=== PATIENT | female | born 1945 | race American Indian/Alaskan Native ===

== ENCOUNTER 2020-04-05 16:17 | Emergency (ER) | payer MEDICARE, OTHER, MEDICAID, SELFPAY ==
--- NOTE | 2020-04-05 16:21 | DI.RAD.S_ITS ---
PROCEDURE: XR HUMERUS RT 2V INDICATIONS: right upper arm pain, s/p fall TECHNIQUE: 2 views of the humerus were acquired. COMPARISON: None. FINDINGS: Bones: There is a highly comminuted fracture of the right humeral head and neck, with impaction. No bony erosive lesion is seen. The visualized ribs are Age-appropriate bony degenerative changes are seen. No suspicious lytic or blastic lesions are seen. Soft tissues: No suspicious soft tissue calcifications. IMPRESSION: Impacted, highly comminuted fracture of the right humeral head and neck. Dictated by: Brendan Shanks M.D. on 04/05/2020 at 15:46 Approved by: Brendan Shanks M.D. on 04/05/2020 at 15:47
[2020-04-05 16:22] VITALS: BP 167/67; PULSE 86; RESP 24; TEMP 36.6; O2SAT 93; BMI 45.3
--- NOTE | 2020-04-05 17:12 | ED.UPPEXIN ---
HPI - Extremity Injury (Upper) <Rahat Steven SENIOR SSIS DEVELOPER - Last Filed: 04/05/20 23:23> General Chief Complaint: Extremity Injury, Upper Stated Complaint: GLF R Side Time Seen by Provider: 04/05/20 16:21 Source: patient and EMS Mode of arrival: EMS Limitations: no limitations History of Present Illness HPI narrative: This is a 75-year-old female, former smoker, who has history of depression, hypothyroidism, COPD presents to ED with and [facility] with chief complain of right upper medial arm pain after she sustained a fall. Reports right dominant hand. Patient lives at [facility] and when she was getting off the toilet, she reports lost balance and fell on right arm. There is no obvious skin abrasion, laceration was noticed. Patient reports intact sensation and is able to wiggle her fingers. Patient denies pain in scapula, elbow, wrist, or hand/fingers. Patient denies losing consciousness from this fall. Patient denies chest pain, dizziness, breathing difficulty prior to the fall. She denies previous injury to right humerus. Patient is not currently taking blood thinner. Reports pain is 5/10 and declines strong pain medications and states she takes Tylenol daily for back pain. Patient states she sees nurse practitioner at [facility]. Related Data Home Medications Medication Instructions Recorded Confirmed albuterol sulfate INHALATION 04/05/20 guaifenesin [Mucinex] 1,200 mg PO BID 04/05/20 04/05/20 ipratropium bromide [Atrovent HFA] INHALATION 04/05/20 levothyroxine 50 mcg PO DAILY 04/05/20 04/05/20 montelukast 10 mg PO DAILY 04/05/20 04/05/20 olanzapine 2.5 mg PO QPM 04/05/20 04/05/20 olanzapine 20 mg PO QAM 04/05/20 04/05/20 sertraline 50 mg PO DAILY 04/05/20 04/05/20 Previous Rx's Medication Instructions Recorded hydrocodone-acetaminophen [[place]] 1 tab PO Q12H PRN #7 tab 04/05/20 Allergies Allergy/AdvReac Type Severity Reaction Status Date / Time Penicillins Allergy Verified 04/05/20 17:18 Sulfa (Sulfonamide Allergy Verified 04/05/20 17:18 Antibiotics) Review of Systems <JW Barrios - Last Filed: 04/05/20 23:23> Review of Systems Narrative: General: Denies fever, chills, fatigue, malaise, sweats. HEENT: Denies sinus pain, ear pain, sore throat, difficulty swallowing, dizziness. Respiratory: Denies dyspnea, cough, wheezing, hemoptysis, sputum. Cardiovascular: Denies chest pain, palpitations, orthopnea, edema. Gastrointestinal: Denies nausea, vomiting, abdominal pain, diarrhea, constipation, melena. : Denies dysuria, frequency, incontinence, hematuria, urinary retention. Musculoskeletal: With see HPI Skin: Denies rash, skin lesions, or other. Neurologic: Denies weakness, headache, numbness, change in speech, confusion, seizures, incoordination. Psychiatric: No concerning psychosocial issues. 12-point review of systems is negative except for those stated above. Patient History <JW Barrios - Last Filed: 04/05/20 23:23> Medical History Back pain (Acute) COPD (chronic obstructive pulmonary disease) (Acute) Depression (Acute) Difficulty balancing (Acute) Hypothyroidism (Acute) Memory difficulty (Acute) Social History Smoking Status: Former smoker Smoking Status: Never smoker alcohol intake frequency: holidays/special occasions only Substance Use Type: does not use Exam <JW Barrios - Last Filed: 04/05/20 23:23> Narrative Exam Narrative: GEN: Alert, oriented x 3, well appearing and nourished, and in no acute distress. Head: Normal cephalic, atraumatic. No scalp or temporal tenderness, palpable mass or rash. EYES: Pupils are equal, round, and reactive to light and accommodation. Extraocular muscles are intact bilaterally. There is no subconjunctival hemorrhage, exudate and sclera non-icteric. ENT: Hearing grossly intact. Nose without bleeding, purulent discharge or deviation. Facial sinuses nontender to palpate. Mucous membrane moist, no mucosal lesion. Throat without erythema, tonsillar hypertrophy or exudate. Uvula in midline, airway patent. Neck: Trachea in midline. No JVD, non-tender without lymphadenopathy. No masses or thyroid megaly. Supple, non-tender and no meningeal signs. CARDIAC: Normal regular rate and rhythm without murmurs, gallops, or rubs. No chest wall tenderness. No peripheral edema, cyanosis or pallor. Capillary refill is less than 2 seconds. RESPIRATORY: Lungs are clear to auscultate bilaterally. No cough, wheezes, rales, or rhonchi. No stridor, respiratory distress, increase work of breathing, or accessary muscle used. ABD: Abdomen soft, nontender and non-distended. No guarding or rebound tenderness to palpate. Bowel sounds are normal in all 4 quadrants. There is no palpable masses or organomegaly. SKIN: Warm, dry, normal color for patient. No erythema, lesions or rash over visible areas. BACK: Nontender without deformity or crepitance. No flank tenderness. NEUROLOGICAL: Alert and oriented to place, time and person. Sensation and motor function intact bilaterally. No facial droops, dysphasia. PSYCHIATRIC: Good judgement and reason, without hallucinations, abnormal affect or abnormal behaviors during the examination. Patient is not suicidal. Initial Vital Signs Initial Vital Signs: Vital Signs Temperature 97.9 F 04/05/20 16:22 Pulse Rate 86 04/05/20 16:22 Respiratory Rate 24 04/05/20 16:22 Blood Pressure 167/67 H 04/05/20 16:22 Pulse Oximetry 93 04/05/20 16:22 Extrem Right upper extremity: normal capillary refill, edema, shoulder/upper arm Details: tenderness Location: of the proximal humerus, swelling Location: of the proximal humerus and abnormal ROM Details: pain with active ROM (Due to pain) Details: in ADduction, in ABduction, in extension, in flexion and in internal rotation and pain with passive ROM (Due to pain) Details: with ADduction, with ABduction, with extension, with flexion and with internal rotation; no unusual warmth, elbow/forearm Details: no tenderness and no swelling, wrist Details: normal to inspection; no tenderness and hand Details: normal to inspection, normal capillary refill, normal ROM of fingers and no swelling; no tenderness and no unusual warmth; ROM limited and joint enlargement noted <Renato Hernandez MD - Last Filed: 04/06/20 07:51> Initial Vital Signs Initial Vital Signs: Vital Signs Temperature 97.9 F 04/05/20 16:22 Pulse Rate 86 04/05/20 16:22 Respiratory Rate 24 04/05/20 16:22 Blood Pressure 167/67 H 04/05/20 16:22 Pulse Oximetry 93 04/05/20 16:22 Procedures <JW Barrios - Last Filed: 04/05/20 23:23> Orthopedic Splinting/Casting Right humerus: Side: right Upper Extremity Injury Location: upper arm Upper Extremity Immobilizer: sling/shoulder immobilizer Post splinting neuro exam: intact Post splinting vascular exam: intact Placed by: Nursing Scores <JW Barrios - Last Filed: 04/05/20 23:23> [facility] [place] coma scale eye opening: Spontaneous [place] coma scale verbal response: Orientated [place] coma scale motor response: Obey commands [place] coma scale total score: 15 Course <JW Barrios - Last Filed: 04/05/20 23:23> Orders Ordered: Discontinued Medications Hydrocodone Bitart/Acetaminophen (Vicodin 5/325 Prepack) 1 bottle MISC SEEINSTR ONE Stop: 04/05/20 17:35 Last Admin: 04/05/20 17:57 Dose: 1 bottle Documented by: BRENDAN Vital Signs Vital signs: Vital Signs - 8 hr 04/05/20 16:22 04/05/20 18:08 Temperature 97.9 F Pulse Rate 86 88 Respiratory Rate 24 Blood Pressure 167/67 H 121/64 Pulse Oximetry 93 94 <Renato Hernandez MD - Last Filed: 04/06/20 07:51> Orders Ordered: Discontinued Medications Hydrocodone Bitart/Acetaminophen (Vicodin 5/325 Prepack) 1 bottle MISC SEEINSTR ONE Stop: 04/05/20 17:35 Last Admin: 04/05/20 17:57 Dose: 1 bottle Documented by: BRENDAN Vital Signs Vital signs: Vital Signs - 8 hr 04/05/20 16:22 04/05/20 18:08 Temperature 97.9 F Pulse Rate 86 88 Respiratory Rate 24 Blood Pressure 167/67 H 121/64 Pulse Oximetry 93 94 MDM - Extremity Injury (Upper) <JW Barrios - Last Filed: 04/05/20 23:23> Differential Diagnosis Differential diagnosis: Likely other (Humerus fracture, upper arm contusion, fall) Medical Records Attestation: I reviewed the patient's medical records. Imaging Data XR-Humerus RT: Radiologist's Impression: [address] [address] XRay Report Signed Patient: Marli StewartMR#: [id number] : 3Acct:[id number] Age/Sex: 75 / FDate of Service: 04/05/20 Loc: ED Accession Number: [id number] Procedure: XR humerus RT 2V Ordering Provider: Rahat Steven PROCEDURE: XR HUMERUS RT 2V INDICATIONS: right upper arm pain, s/p fall TECHNIQUE: 2 views of the humerus were acquired. COMPARISON: None. FINDINGS: Bones: There is a highly comminuted fracture of the right humeral head and neck, with impaction. No bony erosive lesion is seen. The visualized ribs are Age-appropriate bony degenerative changes are seen. No suspicious lytic or blastic lesions are seen. Soft tissues: No suspicious soft tissue calcifications. IMPRESSION: Impacted, highly comminuted fracture of the right humeral head and neck. Dictated by: Brendan Shanks M.D. on 04/05/2020 at 15:46 Approved by: Brendan Shanks M.D. on 04/05/2020 at 15:47 MDM Narrative Medical decision making narrative: This is a 75-year-old female who presents to ED with right upper arm pain near the axilla after she fell off the toilet. Patient denies chest pain, dizziness, breathing difficulty prior to the fall and states she had lost balance. Patient denies shoulder pain, mid cervical neck tenderness, headache, elbow pain, wrist or hand pain. Patient had limited range of motion of right arm due to discomfort. Patient arrived to ED with field sling that was applied by EMS. Neuro vascular exam was intact in right hand with brisk cap refill. No lab test was done since patient did not have any prior abnormal symptoms. Right humerus x-ray test indicates a highly comminuted fracture of the right humeral head and neck with impaction. Dr. Rose was consulted over the phone and he reviewed x-ray images. It was recommended to keep patient's affected arm in a sling and to follow-up on Tuesday at [facility]. Findings were discussed with the patient and informed that patient may require surgical procedure for her injury. Patient declined surgery at this time. Patient advised to discuss with orthopedist for risk and benefit of surgical procedure for the treatment. Patient declined pain medication while in ED. Patient discharged to home with prepack [place] but advised to take [id number] Tylenol and or Motrin as needed as 1st line treatment with RICE therapy and a shoulder immobilizer. Return precautions were discussed with patient and she verbalized understanding and in agreement with treatment plan. Discharge Plan Departure Patient Disposition: Home Clinical Impression: Closed comminuted fracture of right humerus Qualifiers: Encounter type: initial encounter Humerus Location: shaft Fracture alignment: displaced Qualified Code(s): S42.351A - Displaced comminuted fracture of shaft of humerus, right arm, initial encounter for closed fracture Fall Qualifiers: Encounter type: initial encounter Qualified Code(s): W19.XXXA - Unspecified fall, initial encounter Discharge Date/Time: 04/05/20 18:10 Instructions: How to Prevent Falls, Humeral Shaft Fracture Activity Restrictions/Additional Instructions: You have been diagnosed with [dominant hand closed highly comminuted fracture of right humeral head and neck from fall. You may require a surgery to treat this. Please use sling all time.]. What to do: *Take your medications as directed. Please take Tylenol 650-1000 mg up to 3 to 4 times a day for pain. Ibuprofen/Motrin 400 mg up to 3 times a day for pain as needed with food to decrease upset stomach. I will send you home with strong pain medication which is called [place] ( Tylenol and Hydrocodone mixture) for severe pain. This can cause drowsiness so please take precaution not to fall, drive, drink alcohol, or operate heavy equipments. It can also cause constipation so please take precautions and take adequate hydration and high-fiber diet. *Follow up with your primary care provider in 2-3 days, call for an appointment. Please call [facility] office on Tuesday morning. I spoke with Dr. Rose on the phone about your arm fracture and he is aware. Let them know you were seen in the ED and that we asked you to be seen in follow up. *Return to ED if you have any new, worsening, or concerning symptoms, such as [chest pain, breathing difficulty, fever, severe pain, increasing numbness/weakness/tingling on affected arm or any acute concerns]. Prescriptions: New hydrocodone-acetaminophen [[place]] 5-325 mg tablet 1 tab PO Q12H PRN (Reason: pain) Qty: 7 RF: 0 No Action albuterol sulfate 90 mcg/actuation HFA aerosol inhaler INHALATION RF: 0 olanzapine 2.5 mg tablet 2.5 mg PO QPM RF: 0 levothyroxine 50 mcg tablet 50 mcg PO DAILY RF: 0 montelukast 10 mg tablet 10 mg PO DAILY RF: 0 sertraline 50 mg tablet 50 mg PO DAILY RF: 0 Atrovent HFA 17 mcg/actuation HFA aerosol inhaler INHALATION RF: 0 olanzapine 20 mg tablet 20 mg PO QAM RF: 0 guaifenesin [Mucinex] 600 mg Tablet Extended Release 12hr 1,200 mg PO BID RF: 0 Referrals: [facility] [Provider Group] Beth Trejo [Non-Staff] -
[2020-04-05] MEDS: HYDROCODONE/ACET 5/325 PREPACK 1 BOTTLE MISC (17:57)
[2020-04-05 18:08] VITALS: BP 121/64; PULSE 88; O2SAT 94
== END 2020-04-05 18:10 | disposition home or self-care (01) ==
PROVIDERS: Emergency Provider Nurse Practitioner Family
DX: S42.351A Displaced comminuted fracture of shaft of humerus, right arm, initial encounter for closed fracture (principal); W19.XXXA Unspecified fall, initial encounter
CPT/HCPCS: 73060; 99283

== ENCOUNTER 2020-04-10 13:34 | Emergency (ER) | payer MEDICARE, OTHER, MEDICAID, SELFPAY ==
[2020-04-10 13:50] VITALS: BP 114/56; PULSE 115; RESP 18; TEMP 36.1; O2SAT 94; BMI 43.8
--- NOTE | 2020-04-10 14:06 | ED_ITS ---
HPI - Extremity Injury (Upper) <BART Rodgers - Last Filed: 04/10/20 18:15> General Chief Complaint: Extremity Injury, Upper Stated Complaint: Fall 04/05, bruising around Rt Shoulder Break Time Seen by Provider: 04/10/20 13:55 Source: patient and family Mode of arrival: Ambulatory Limitations: no limitations History of Present Illness HPI narrative: The patient is a delightful 75-year-old female former smoker with history of COPD who presents from her elder Community for chief complaint of needing to get admitted. She presented to this emergency department on 04/05 and was diagnosed with a comminuted right humeral fracture. She states that her elder facility is staffed only with CNAs, and they are unable to help her bathe or get dressed. Thus her elder facility referred her back to the emergency department for admission. The patient denies any pain. She ambulated into the emergency department. Staff told family that they are not able to care for her because they are not nurses. The patient has planned follow-up with Orthopedics on Tuesday with Dr. Keyes. She has an MRI scheduled for 330 today. Related Data Home Medications Medication Instructions Recorded Confirmed albuterol sulfate INHALATION 04/05/20 guaifenesin [Mucinex] 1,200 mg PO BID 04/05/20 04/05/20 ipratropium bromide [Atrovent HFA] INHALATION 04/05/20 levothyroxine 50 mcg PO DAILY 04/05/20 04/05/20 montelukast 10 mg PO DAILY 04/05/20 04/05/20 olanzapine 2.5 mg PO QPM 04/05/20 04/05/20 olanzapine 20 mg PO QAM 04/05/20 04/05/20 sertraline 50 mg PO DAILY 04/05/20 04/05/20 Previous Rx's Medication Instructions Recorded hydrocodone-acetaminophen [Sedgwick] 1 tab PO Q12H PRN #7 tab 04/05/20 Allergies Allergy/AdvReac Type Severity Reaction Status Date / Time Penicillins Allergy Verified 04/10/20 14:02 Sulfa (Sulfonamide Allergy Verified 04/10/20 14:02 Antibiotics) Review of Systems <BART Rodgers - Last Filed: 04/10/20 18:15> Review of Systems Narrative: GENERAL: Denies chills, fatigue, malaise, fever, sweats. HEENT: Denies sinus pain, ear pain, sore throat, difficulty swallowing, dizziness. RESPIRATORY: Denies dyspnea, cough, wheezing, hemoptysis, sputum. CARDIOVASCULAR: Denies chest pain, palpitations, orthopnea, edema, GASTROINTESTINAL: Denies nausea, vomiting, abdominal pain, diarrhea, c onstipation, melena. : Denies dysuria, frequency, incontinence, hematuria, urinary retention. MUSCULOSKELETAL: See HPI SKIN: See HPI NEUROLOGIC: Denies weakness, headache, numbness, change in speech, confusion, seizures, incoordination. PSYCHIATRIC: No concerning psychosocial issues. 12 point review of systems is negative except for those stated above Patient History <BART Rodgers - Last Filed: 04/10/20 18:15> Medical History Back pain (Acute) COPD (chronic obstructive pulmonary disease) (Acute) Depression (Acute) Difficulty balancing (Acute) Hypothyroidism (Acute) Memory difficulty (Acute) Social History Smoking Status: Former smoker Smoking Status: Former smoker alcohol intake frequency: holidays/special occasions only Substance Use Type: does not use Exam <BART Rodgers - Last Filed: 04/10/20 18:15> Narrative Exam Narrative: GENERAL: Elderly female no acute distress HEAD: Atraumatic. Normocephalic. No temporal or scalp tenderness. EYES: Pupils equal round and reactive. Extraocular motions intact. No scleral icterus. No injection or drainage. ENT: Nose without bleeding, purulent drainage or septal hematoma. Throat without erythema, tonsillar hypertrophy or exudate. Uvula midline. Airway patent. NECK: Trachea midline. No JVD or lymphadenopathy. Supple, nontender, no meningeal signs. CARDIOVASCULAR: Regular rate and rhythm RESPIRATORY: Coarse bilaterally to auscultation. Breath sounds equal bilaterally. No wheezes, rales, or rhonchi. No cough. No increased respiratory effort. No accessory muscle use. GASTROINTESTINAL: Abdomen soft, non-tender, nondistended. No hepato- splenomegaly, or palpable masses. No guarding. EXTREMITIES: Generalized pain to palpation of right shoulder. Sling in place. Positive right radial pulse. Able to flex and extend, lead welder with right hand. Capillary refill less than 2 seconds. Slight swelling noted right hand. Positive right radial pulse. BACK: Nontender without deformity or crepitance. No flank tenderness. NEURO: AOx3. SKIN: Ecchymosis noted at right shoulder. No lacerations or abrasions noted. Initial Vital Signs Initial Vital Signs: Vital Signs Temperature 97.0 F L 04/10/20 13:50 Pulse Rate 115 H 04/10/20 13:50 Respiratory Rate 18 04/10/20 13:50 Blood Pressure 114/56 L 04/10/20 13:50 Pulse Oximetry 94 04/10/20 13:50 <Nelson Spencer DO - Last Filed: 04/10/20 18:24> Initial Vital Signs Initial Vital Signs: Vital Signs Temperature 97.0 F L 04/10/20 13:50 Pulse Rate 115 H 04/10/20 13:50 Respiratory Rate 18 04/10/20 13:50 Blood Pressure 114/56 L 04/10/20 13:50 Pulse Oximetry 94 04/10/20 13:50 Scores <BART Rodgers - Last Filed: 04/10/20 18:15> GCS Laurent coma scale eye opening: Spontaneous Laurent coma scale verbal response: Orientated Alexander coma scale motor response: Obey commands Alexander coma scale total score: 15 Course <BART Rodgers - Last Filed: 04/10/20 18:15> Orders Ordered: ED Orders 04/10/20 14:04 Consult to [facility] [place] - Napper Grinder Stat 04/10/20 14:39 Consult to Physical Therapy Evaluate & Treat 04/10/20 14:48 CT UE RT wo con Stat Vital Signs Vital signs: Vital Signs - 8 hr 04/10/20 13:50 04/10/20 15:30 04/10/20 17:33 Temperature 97.0 F L Pulse Rate 115 H 84 94 H Respiratory Rate 18 16 16 Blood Pressure 114/56 L 120/75 Blood Pressure [Left Arm] 110/54 L Pulse Oximetry 94 97 98 <DO Jonathan Jean Last Filed: 04/10/20 18:24> Orders Ordered: ED Orders 04/10/20 14:04 Consult to [facility] [place] - Napper Grinder Stat 04/10/20 14:39 Consult to Physical Therapy Evaluate & Treat 04/10/20 14:48 CT UE RT wo con Stat Vital Signs Vital signs: Vital Signs - 8 hr 04/10/20 13:50 04/10/20 15:30 04/10/20 17:33 Temperature 97.0 F L Pulse Rate 115 H 84 94 H Respiratory Rate 18 16 16 Blood Pressure 114/56 L 120/75 Blood Pressure [Left Arm] 110/54 L Pulse Oximetry 94 97 98 MDM - Extremity Injury (Upper) <BART Rodgers - Last Filed: 04/10/20 18:15> Imaging Data Extremity x-ray #1: Radiologist's Impression: [address] [place] [id number] Scan Report Signed Patient: Marli Stewart#: [id number] : 3Acct:[id number] Age/Sex: 75 / FDate of Service: 04/10/20 Loc: ED Accession Number: [id number] Procedure: CT UE RT wo con Ordering Provider: Amanda Kaufman PROCEDURE: CT UE RT WO CON INDICATIONS: fracture upper right humerus TECHNIQUE: Noncontrast 1-1.5 mm thick sections acquired from the acromioclavicular joint to the inferior scapula, with coronal and sagittal reformatting. COMPARISON: None. FINDINGS: Image quality: Excellent. Bones: Acute comminuted impacted humeral head and proximal humeral shaft fracture is seen with superior migration of proximal humeral shaft in relation to humeral head and up to 2.2 cm overlapping at fracture site. Anterior displacement of humeral shaft in relation to humeral head is noted. Fracture lines are seen extending to both greater and lesser tuberosity of humeral head with anterior and medial displacement of lesser tuberosity fragment and superior lateral displacement of greater tuberosity fragment anterior displacement of the proximal humeral shaft fracture fragment is also seen. Fracture line is noted extending to glenohumeral joint space. No dislocation is seen. No other fracture is noted visualized right ribs are intact. Soft tissues: Marked soft tissue swelling surrounding proximal humeral fracture site is seen. Moderate amount of glenohumeral joint effusion is noted suggestive of hemarthrosis. No gross full-thickness rotator cuff tendon rupture. Visualized right lung is clear. IMPRESSION: 1. Acute displaced, impacted and comminuted 4 part fracture of humeral head and proximal humerus as described above. No dislocation. No other fracture is seen. 2. Moderate amount of joint effusion suggestive of hemarthrosis. Soft tissue swelling surrounding proximal humeral fracture site. No gross full-thickness rotator cuff tendon rupture. Dictated by: Korey Oconnor M.D. on 04/10/2020 at 15:11 Approved by: Korey Oconnor M.D. on 04/10/2020 at 15:18 [facility] Narrative Medical decision making narrative: The patient is a 75-year-old female with history of recent right humeral head fracture who presents with a chief complaint of ?they told me to come here to get admitted.She is resident at [facility]. She was told that she needed to come here because she needs too much help than her elder facility can provide for her. She is without complaint in the emergency department, denies any pain chest pain shortness of breath fever and states overall she feels well despite her broken arm. She received a physical therapy consult in the emergency department, who states that the patient is doing well. She was able to ambulate in the hallways. Have minimal deficits, all associated with her fracture. The physical therapist stated there was no notable rationale for further skilled physical therapy at this time. He recommended discharge back to her facility. radiology resident Jeremy spoke with the care facility at great length regarding the patient, her needs and their ability to meet them. We were able to discharge her back home to her facility which the patient she and her family member greatly appreciated. Encouraged fol lowing up with her orthopedic appointment as scheduled on Tuesday. Of note the patient was scheduled for an outpatient CT of her right upper arm ordered by Orthopedics. This was to occur during her emergency department stay, so I did order that from the emergency department to not delay her orthopedic appointment on Tuesday. Discussed the ability come back to the emergency department for any acute concerns. Patient family and no questions or concerns upon discharge and state understanding return precautions as well as follow-up care. Discharge Plan Departure Patient Disposition: Home Clinical Impression: Closed comminuted fracture of right humerus Qualifiers: Encounter type: initial encounter Humerus Location: supracondylar fracture without intercondylar fracture Fracture alignment: displaced Qualified Code(s): S42.421A - Displaced comminuted supracondylar fracture without intercondylar fracture of right humerus, initial encounter for closed fracture Discharge Date/Time: 04/10/20 17:30 Instructions: How to Use a Sling, DI for Humeral Fracture Activity Restrictions/Additional Instructions: Thank you for trusting us with your care today Please remember to follow up with Dr. Keyes with Orthopedics on Tuesday 13:10 Please remember rest ice compression elevation You can reach are [employer]CRE[employer] PRINTING [employer]PARER at [phone] Please come back to emergency department for any urgent concerns including chest pain, shortness of breath, decreased circulation etcetera Prescriptions: No Action hydrocodone-acetaminophen [Sedgwick] 5-325 mg tablet 1 tab PO Q12H PRN (Reason: pain) Qty: 7 RF: 0 albuterol sulfate 90 mcg/actuation HFA aerosol inhaler INHALATION RF: 0 olanzapine 2.5 mg tablet 2.5 mg PO QPM RF: 0 levothyroxine 50 mcg tablet 50 mcg PO DAILY RF: 0 montelukast 10 mg tablet 10 mg PO DAILY RF: 0 sertraline 50 mg tablet 50 mg PO DAILY RF: 0 Atrovent HFA 17 mcg/actuation HFA aerosol inhaler INHALATION RF: 0 olanzapine 20 mg tablet 20 mg PO QAM RF: 0 guaifenesin [Mucinex] 600 mg Tablet Extended Release 12hr 1,200 mg PO BID RF: 0 Referrals: Jovany Keyes MD [Physician] - <Nelson Spencer, DO - Last Filed: 04/10/20 18:24> Cosign ED Attending Cosignature Attestation: Dr Spencer Co-Sign Statement: I was available for consultation during this patient's emergency department visit. This chart is signed by myself for administrative purposes only. I did not have direct contact with this patient during this visit. They were seen independently by the APC.
--- NOTE | 2020-04-10 14:48 | DI.CT.S_ITS ---
PROCEDURE: CT UE RT WO CON INDICATIONS: fracture upper right humerus TECHNIQUE: Noncontrast 1-1.5 mm thick sections acquired from the acromioclavicular joint to the inferior scapula, with coronal and sagittal reformatting. COMPARISON: None. FINDINGS: Image quality: Excellent. Bones: Acute comminuted impacted humeral head and proximal humeral shaft fracture is seen with superior migration of proximal humeral shaft in relation to humeral head and up to 2.2 cm overlapping at fracture site. Anterior displacement of humeral shaft in relation to humeral head is noted. Fracture lines are seen extending to both greater and lesser tuberosity of humeral head with anterior and medial displacement of lesser tuberosity fragment and superior lateral displacement of greater tuberosity fragment anterior displacement of the proximal humeral shaft fracture fragment is also seen. Fracture line is noted extending to glenohumeral joint space. No dislocation is seen. No other fracture is noted visualized right ribs are intact. Soft tissues: Marked soft tissue swelling surrounding proximal humeral fracture site is seen. Moderate amount of glenohumeral joint effusion is noted suggestive of hemarthrosis. No gross full-thickness rotator cuff tendon rupture. Visualized right lung is clear. IMPRESSION: 1. Acute displaced, impacted and comminuted 4 part fracture of humeral head and proximal humerus as described above. No dislocation. No other fracture is seen. 2. Moderate amount of joint effusion suggestive of hemarthrosis. Soft tissue swelling surrounding proximal humeral fracture site. No gross full-thickness rotator cuff tendon rupture. Dictated by: Korey Oconnor M.D. on 04/10/2020 at 15:11 Approved by: Korey Oconnor M.D. on 04/10/2020 at 15:18
[2020-04-10 15:30] VITALS: BP 110/54; PULSE 84; RESP 16; O2SAT 97
--- NOTE | 2020-04-10 15:50 | PT.IIE ---
Medical History (Last Reviewed 04/05/20 @ 23:13 by JW Barrios) Back pain (Acute) COPD (chronic obstructive pulmonary disease) (Acute) Depression (Acute) Difficulty balancing (Acute) Hypothyroidism (Acute) Memory difficulty (Acute) Physical Therapy Inpatient Evaluation/Re-Eval M1 PT/OT-IP Prior Functional Status Start: 04/10/20 15:54 Freq: Status: Active Protocol: Document 04/10/20 15:30 DCW (Rec: 04/10/20 16:13 DCW [email or web address]) Medical Review Prior Functional Status Medical History Reviewed Yes Social History Living Arrangements Adult Family Home Number of Stairs To Enter/Railing? No JOSE ALEJANDRO M2 PT-IP Current Condition Start: 04/10/20 15:54 Freq: Status: Active Protocol: Document 04/10/20 15:30 DCW (Rec: 04/10/20 16:13 DCW [email or web address]) Physical Therapy Current Condition Current Condition Evaluation Date 04/10/20 Treatment Diagnosis R shoulder pain Onset Date 04/05/20 M3 PT-IP Subjective Start: 04/10/20 15:54 Freq: Status: Active Protocol: Document 04/10/20 15:30 DCW (Rec: 04/10/20 16:13 DCW [email or web address]) Subjective Physical Therapy Visit Type Type Initial Evaluation Visit Start Time 15:30 Visit Stop Time 15:50 Total Visit Minutes 20 Notes Pt is a 75 year old female 5 days s/p GLF with a resulting R humeral fracture. Pt returned to her nursing home after her fracture, and today return to the ED to be admitted to the hospital because the nursing home was unable to provide care for her due to her humeral fracture. A Physical Therapy consult was ordered in order to determine pt's current level of function. Number of MAGISTRATE ASSISTANT Visits 0 Physical Therapy Visit Comments Patient Comments My shoulder hurts, but I feel alright otherwise. I want to go back to the home after I stay here and heal a few days. Therapy Pain Assessment Pain When Pain Assessed At Rest Pain Present Pain Present Pain Reported Location Right Shoulder Intensity 3 Scale Used Martin-López (Faces) Pain Behaviors Wincing M4 PT-IP Mobility and Gait Start: 04/10/20 15:54 Freq: Status: Active Protocol: Document 04/10/20 15:30 DCW (Rec: 04/10/20 16:13 DCW [email or web address]) PT-Bed Mobility Assessment Rolling Type of Rolling Roll to Left Level of Assist Independent Supine to Sit Supine to Sit Independent,Minimal Assistance ,1 Person Assistance Sit to Supine Sit to Supine Independent Scooting Scooting to Edge of Bed Independent PT-Transfer Assessment Sit to and From Stand Sit to and from Stand Independent Equipment Transfer Assistive Device Bed Rail,Gait Belt Comments Mobility Comments Pt required Min A from R side- lying->sitting secondary to shoulder pain, independent with all other bed mobility. Gait Assessment Gait Gait Assistance Required: Standby Assistance Distance (Feet) 70 Able to Maintain Weight Bearing Status Yes During Gait Assistive Devices Assistive Device None,Gait Belt Orthotic/Prosthetic Devices or Brace: No Gait Deviations General Gait Pattern Within Normal Limits Factors Limiting Gait Function Factors Limiting Gait Function Decreased Activity Tolerance Comments Gait Comments Pt ambulated from room down sarah and back 70', limited due to decreased activity tolerance, likely secondary to COPD. O2 Sat at 94% PT-Balance Assessment Sitting Balance and Reactions Static Sitting Balance Ability Normal Dynamic Sitting Balance Ability Normal Standing Balance and Reactions Static Standing Balance Ability Good Dynamic Standing Balance Ability Good Device Used None Balance Tests Romberg 30 seconds Functional Reach Test 6 inches Comments Other Balance Tests/Deviations/Treatment Four square step test - WNL : M5 PT-IP Objective Assessments Start: 04/10/20 15:54 Freq: Status: Active Protocol: Document 04/10/20 15:30 DCW (Rec: 04/10/20 16:13 DCW [email or web address]) Orientation Orientation/Cognition Level of Alertness Alert Language Function Ability No Deficits Noted Gross Range of Motion Upper Extremity ROM Assessment Right Impaired Lower Extremity ROM Assessment Within Functional Limits Strength Upper Extremity Strength Assessment Right Impaired Lower Extremity Strength Assessment Within Functional Limits Hip 4+/5 Knee 4+/5 Ankle 4/5 M7 PT-IP Assessment and Plan Start: 04/10/20 15:54 Freq: Status: Active Protocol: Document 04/10/20 15:30 DCW (Rec: 04/10/20 16:13 DCW [email or web address]) PT Summary Assessment and Plan Potential Rehabilitation Potential Excellent Status of Condition at Evaluation Stable Summary Assessment Summary Pt presents with minimal deficits, all associated with pt's R shoulder fracture. Pt able to stand eyes open, eyes closed, narrow ASHER and four- square step test with no loss of balance. Pt has a functional reach of 6, and ambulated 70' in sarah without an assistive device. No notable rationale for further skilled PT at this time. Frequency of Treatment Frequency Of Treatment Discharge Discharge Recommendations PT Discharge Recommendations Home Transportation Needs at Discharge Private Vehicle
--- NOTE | 2020-04-10 16:39 | CM.SWNOTE ---
SCIENTOLOGIST note SCIENTOLOGIST consult requested for patient. Patient is a 75 y/o female who presents to ED with instructions from her [facility] classification case manager and the sales administration manager of [facility] to get admitted in order to obtain placement in a usp. Patient presented to ED 04/05 with a broken arm, and had scheduled outpatient f/u appointments with orthopedic surgeon. SCIENTOLOGIST enters room and explains role. Patient is in room with step daughter/ DPOA Katherine Perea . Patient and Katherine explain patient's recent fall and that the [facility] she was staying at told her she couldn't come back because they were unable to care for patient due to her weight and needs. SCIENTOLOGIST inquired about what patient was requiring help with. Patient informed SCIENTOLOGIST that she required assistance showering, getting out of bed, and getting dressed. Patient informs SCIENTOLOGIST that she was told by [facility] that she needed too much care and that they were unable to care for her because they only have RD PROJECT MANAGER's on staff. Katherine informs SCIENTOLOGIST that her classification case manager at [facility] Anayeli Mccloud had told them to come to ED and get admitted for 3 days in order to get into a SNF. SCIENTOLOGIST asked if patient has any new symptoms or illnesses since previous presentation to ED. SCIENTOLOGIST informed patient and Katherine that- while the final decision would be made by the provider, it seemed unlikely that patient would meet criteria for admission to hospital. SCIENTOLOGIST and family discussed potential other options, and patient currently does not have financial resources to seek care on her own. Patient provides SCIENTOLOGIST permission to speak to [facility] and [facility] classification case manager. SCIENTOLOGIST staffs with Amanda Kaufman who informs SCIENTOLOGIST that a PT consult has been ordered. SCIENTOLOGIST then followed up with PT provider who informed SCIENTOLOGIST that patient needed a little help getting out of bed but passed every test otherwise. SCIENTOLOGIST enters room while provider is informing patient that she does not meet criteria for admission. SCIENTOLOGIST informs patient that, based on the results from PT, the care that she needs should be able to be provided at an AF with CNAs, and that it was inappropriate for the [facility] and classification case manager to tell patient to come to the ED to get admitted to get into a usp. Patient and Katherine indicated agreement. SCIENTOLOGIST informed patient that he would follow up with [facility] classification case manager and [facility] to discuss this, and that an APS report may have to be made. SCIENTOLOGIST calls Anayeli Mccloud [phone] , [facility] classification case manager. Anayeli informs SCIENTOLOGIST that [facility] has informed her that patient needed more care and Anayeli made the recommendation for hospitalization. SCIENTOLOGIST informed Anayeli that patient had no new acute needs, was assessed by PT and found to be relatively stable, and was not going to get admitted. SCIENTOLOGIST informed Anayeli that using hospital admissions for access to SNF in the absence of acute needs was a wildly inappropriate use of the hospital, and that based on presentation to ED today, patient's needs should be able to be met in [facility]. Anayeli informed SCIENTOLOGIST that [facility] had described patient's situation differently and gave phone number for [facility]. SCIENTOLOGIST receives call from [facility] sales administration manager Geraldine. Geraldine informs SCIENTOLOGIST that they do not have the resources to care for patient due to her weight, but that they would welcome her back after she receives care at a nursing facility. SCIENTOLOGIST reviews patient's care at ED and informs Geraldine that all patient's current care needs should be able to reasonably be met within the boundaries of the care provided by CNAs in an [facility]. SCIENTOLOGIST informs Geraldine that sending a patient to ED in absense of any acute need to gain access to nursing homes is a wildly inappropriate. Geraldine informs SCIENTOLOGIST that she was instructed to send patient to ED by Anayeli, but if the doctor says she can be here- this is her home and that she could come back. SCIENTOLOGIST informs patient of conversation and that she will be welcome back home. Patient and Katherine express relief and thank SCIENTOLOGIST for support. SCIENTOLOGIST informs Provider Amanda Kaufman who puts f/u appts. in discharge note along with ED SCIENTOLOGIST line in case patient has any more questions. Pl: Patient to d/c back to [facility] and follow up with outpatient providers. Tommy Coleman MSW
[2020-04-10 17:33] VITALS: BP 120/75; PULSE 94; RESP 16; O2SAT 98
== END 2020-04-10 17:30 | disposition home or self-care (01) ==
PROVIDERS: Emergency Provider Nurse Practitioner Family
DX: S42.421A Displaced comminuted supracondylar fracture without intercondylar fracture of right humerus, initial encounter for closed fracture (principal); W19.XXXA Unspecified fall, initial encounter
CPT/HCPCS: 73200; 97161; 99283; 99284